=== PATIENT | male | born 1980 | race African-American/Black ===

== ENCOUNTER → 2017-12-21 | Emergency (ER) | payer OTHER ==
[~2017-12-21] VITALS: Ht 175.3 cm; Wt 74.8 kg
[~2017-12-21] MED LIST: HYDROCODONE/APAP 5/325MG 1 EACH TABLET ONE; HYDROCODONE/APAP 5/325MG 1 EACH TABLET PO STA; IBUPROFEN 600 MG TABLET PO ONE
[2017-12-21 13:38] VITALS: BP 109/68
--- NOTE | 2017-12-21 14:44 | NUR ---
CALLED DR EDUARDO VILLATORO ON THE PHONE WITH ARVIND ALBERTS
--- NOTE | 2017-12-21 14:59 | NUR ---
PT C/O PAIN 10/07 NORCO 5 PO
== END | disposition home or self-care (01) ==
LOC: ER 13:19
DX: S92.352A Displaced fracture of fifth metatarsal bone, left foot, initial encounter for closed fracture (principal); W10.8XXA Fall (on) (from) other stairs and steps, initial encounter; Y93.89 Activity, other specified; Y92.89 Other specified places as the place of occurrence of the external cause; Y99.8 Other external cause status
CPT/HCPCS: 73630-TC; A4606; Z7610